=== PATIENT | female | born 1990 | race Caucasian/White ===

== ENCOUNTER 2016-10-20 18:05 | Outpatient (CLI) | payer OTHER | END 2016-10-20 21:43 | disposition home or self-care (01) | LOC: GENOP 18:05 | DX: O99.89 Other specified diseases and conditions complicating pregnancy, childbirth and the puerperium (principal); R10.9 Unspecified abdominal pain; Z3A.32 32 weeks gestation of pregnancy | CPT/HCPCS: 81001; G0463 ==

== ENCOUNTER 2016-11-10 14:07 | Observation (INO) | payer OTHER | END 2016-11-11 10:43 | disposition home or self-care (01) | LOC: GENOP 14:07 → OB 15:50 | PROVIDERS: ADMIT Obstetrics & Gynecology | DX: O46.93 Antepartum hemorrhage, unspecified, third trimester (principal); Z3A.35 35 weeks gestation of pregnancy; Z79.899 Other long term (current) drug therapy; Z88.1 Allergy status to other antibiotic agents | CPT/HCPCS: 59025; 76815; 81001; 90715; G0378 ==

== ENCOUNTER → 2016-12-07 | Outpatient (CLI) | payer OTHER | LOC: GENOP 05:31 | DX: O99.89 Other specified diseases and conditions complicating pregnancy, childbirth and the puerperium (principal); O42.912 Preterm premature rupture of membranes, unspecified as to length of time between rupture and onset of labor, second trimester; R10.9 Unspecified abdominal pain; Z3A.21 21 weeks gestation of pregnancy | CPT/HCPCS: 81001; 83518; G0463 ==

== ENCOUNTER 2016-12-09 23:08 | Observation (INO) | payer OTHER ==
[2016-12-10 00:41] LABS: HEMOGLOBIN 10.8 gm/dl (12.3-15.3); RED BLOOD COUNT 3.95 M/UL (4.00-5.10); WHITE BLOOD COUNT 11.1 K/UL (4.5-11.0)
== END 2016-12-10 07:56 | disposition home or self-care (01) ==
LOC: GENOP 23:08 → OB 12-10 02:47
PROVIDERS: ADMIT Obstetrics & Gynecology
DX: O12.03 Gestational edema, third trimester (principal); O47.1 False labor at or after 37 completed weeks of gestation; Z3A.39 39 weeks gestation of pregnancy; Z98.890 Other specified postprocedural states
CPT/HCPCS: 36415; 81001; 82248; 82565; 84450; 84460; 84550; 85025; 85379; 85384; 85610; 85730; 96360; 96361; G0378; J7120

== ENCOUNTER 2016-12-14 03:43 | Inpatient (IN) | payer OTHER ==
[2016-12-14 04:50] LABS: HEMOGLOBIN 11.1 gm/dl (12.3-15.3); RED BLOOD COUNT 4.09 M/UL (4.00-5.10); WHITE BLOOD COUNT 10.1 K/UL (4.5-11.0)
[2016-12-15 02:34] LABS: HEMOGLOBIN 9.8 gm/dl (12.3-15.3)
== END 2016-12-15 20:09 | disposition home or self-care (01) | DRG 775 ==
LOC: GENOP 03:43 → OB 04:17
PROVIDERS: Obstetrics & Gynecology; ADMIT Obstetrics & Gynecology
PROC: 10E0XZZ Delivery of Products of Conception, External Approach (ICD-10-PCS; principal; 2016-12-14)
PROC: 10D07Z6 Extraction of Products of Conception, Vacuum, Via Natural or Artificial Opening (ICD-10-PCS; principal; 2016-12-14)
PROC: 10907ZC Drainage of Amniotic Fluid, Therapeutic from Products of Conception, Via Natural or Artificial Opening (ICD-10-PCS; principal; 2016-12-14)
DX: O99.214 Obesity complicating childbirth (principal); O34.33 Maternal care for cervical incompetence, third trimester; O77.0 Labor and delivery complicated by meconium in amniotic fluid; Z3A.39 39 weeks gestation of pregnancy; Z37.0 Single live birth; O76 Abnormality in fetal heart rate and rhythm complicating labor and delivery; O69.81X0 Labor and delivery complicated by cord around neck, without compression, not applicable or unspecified; Z81.8 Family history of other mental and behavioral disorders; Z82.49 Family history of ischemic heart disease and other diseases of the circulatory system; Z83.3 Family history of diabetes mellitus; Z84.89 Family history of other specified conditions
CPT/HCPCS: 36415; 81001; 82800; 85014; 85018; 85025; J2300; J2590; J3430